=== PATIENT | male | born 1970 ===

== ENCOUNTER 2018-11-11 11:40 | Emergency (ER) | payer SELFPAY ==
[2018-11-11 11:47] VITALS: BP 115/79; PULSE 81; RESP 18; TEMP 98; O2SAT 98; BMI 25.2
--- NOTE | 2018-11-11 12:35 | ED PDOC ---
HPI: Dental Pain/Injury Time Seen by Provider: 11/11/18 12:20 Chief Complaint (Nursing): Dental Pain Chief Complaint (Provider): Dental pain History Per: Patient History/Exam Limitations: no limitations Onset/Duration Of Symptoms: Days (3x days) Current Symptoms Are (Timing): Still Present Severity: Moderate Additional Complaint(s): 48 year old male with no pertinent past medical history presents to the ED for an evaluation of dental pain ongoing for 3x days. Patient states that 2x days ago he has several abscesses drained by an oral surgeon, and was given 2x percocet for the pain, and has depleted his supply. Patient still complains of having dental pain which is uncontrolled by tylenol (last taken last night), and is requesting percocet in the ED, as he is allergic to tramadol, motrin, and toradol. Patient has an appointment with his oral surgeon for a tooth extraction tomorrow. Otherwise, patient denies having any other complaints. PMD: None provided Past Medical History Reviewed: Historical Data, Nursing Documentation, Vital Signs Vital Signs: Last Vital Signs Temp 98 F 11/11/18 11:45 Pulse 81 11/11/18 11:45 Resp 18 11/11/18 11:45 BP 115/79 11/11/18 11:45 Pulse Ox 98 11/11/18 11:45 RADHA Report Viewed: Yes - Medical History PMH: No Chronic Diseases - Family History Family History: States: No Known Family Hx - Social History Alcohol: None Drugs: Denies - Allergies Allergies/Adverse Reactions: Allergies Allergy/AdvReac Type Severity Reaction Status Date / Time ibuprofen [From Motrin] Allergy RASH Verified 11/11/18 12:04 ketorolac [From Toradol] Allergy RASH Verified 11/11/18 12:04 latex Allergy RASH Verified 11/11/18 12:04 levofloxacin [From Levaquin] Allergy RASH Verified 11/11/18 12:04 Penicillins Allergy RASH Verified 11/11/18 12:04 povidone-iodine Allergy RASH Verified 11/11/18 12:04 [From Betadine] soap [From Betadine] Allergy RASH Verified 11/11/18 12:04 tramadol Allergy RASH Verified 11/11/18 12:04 Review of Systems ROS Statement: Except As Marked, All Systems Reviewed And Found Negative ENT: Positive for: Other (dental pain) Physical Exam - Reviewed Nursing Documentation Reviewed: Yes Vital Signs Reviewed: Yes - Physical Exam Appears: Positive for: Well, Non-toxic, No Acute Distress Head Exam: Positive for: ATRAUMATIC, NORMOCEPHALIC Skin: Positive for: Normal Color, Warm, Dry Eye Exam: Positive for: Normal appearance ENT: Positive for: Other (multiple dental caries noted, missing teeth noted to posterior mandible, no signs of gingivitis) Neurologic/Psych: Positive for: Alert, Oriented (3x) - ECG O2 Sat by Pulse Oximetry: 98 (RA) Pulse Ox Interpretation: Normal Medical Decision Making Medical Decision Makin:20 Initial impression: 48 year old male with dental pain Scribe Attestation: Documented Yuri Simms, acting as a scribe for Shiva Mccann PA-C. Provider Scribe Attestation: All medical record entries made by the Scribe were at my direction and personally dictated by me. I have reviewed the chart and agree that the record accurately reflects my personal performance of the history, physical exam, medical decision making, and the department course for this patient. I have also personally directed, reviewed, and agree with the discharge instructions and disposition. Disposition - Clinical Impression Clinical Impression: Pain, dental - Patient ED Disposition Is Patient to be Admitted: No - Disposition Disposition: Routine/Home Disposition Time: 12:45 Condition: FAIR Instructions: Dental Pain (DC)
[2018-11-11] MEDS ORDERED: Oxycodone/Acetaminophen 5/325 mg Tab PO STA (12:44)
== END 2018-11-11 12:56 | disposition home or self-care (01) ==
LOC: H.ER 11:40
DX: K08.89 Other specified disorders of teeth and supporting structures (principal); Z88.6 Allergy status to analgesic agent; Z88.0 Allergy status to penicillin; Z88.8 Allergy status to other drugs, medicaments and biological substances